=== PATIENT | female | born 1950 | race Caucasian/White ===

== ENCOUNTER → 2018-11-18 22:38 | Outpatient (CLI) | payer MEDICARE, BC ==
[2018-11-19 00:27] LABS: BASOPHILS 0.4 % (0-2); HEMATOCRIT 39.7 % (36.0-48.0); IMMATURE GRANULOCYTES 0.3 % (0-5); LYMPHOCYTES 25.5 % (15-50); MCH 30.5 pg (26.0-34.0); MCHC 32.7 g/dL (31.0-37.0); MCV 93.2 fL (80.0-100.0); MEAN PLATELET VOLUME 9.5 fL (7.4-10.4); NEUTROPHILS 63.8 % (40-80); PLATELET COUNT 454 10x3/uL (130-400); RBC 4.26 10x6/uL (4.00-5.40); RDW 13.6 % (11.5-14.5); WBC 7.9 10x3/uL (4.8-10.8)
[2018-11-19 00:59] LABS: ALBUMIN 3.8 g/dL (3.4-5.0); BILIRUBIN - TOTAL 0.23 mg/dL (0.2-1.3); CALCIUM 8.3 mg/dL (8.5-10.1); CARBON DIOXIDE 28.2 mmol/L (21.0-32.0); CREATININE - SERUM 1.2 mg/dL (0.6-1.3); POTASSIUM - SERUM 4.2 mmol/L (3.5-5.1); PROTEIN - SERUM 7.1 g/dL (6.4-8.2)
== END | disposition home or self-care (01) ==
LOC: D.LABREF 22:38
DX: N39.0 Urinary tract infection, site not specified (principal); R42 Dizziness and giddiness

== ENCOUNTER → 2020-03-02 16:48 | Outpatient (CLI) | payer MEDICARE, BC | END | disposition home or self-care (01) | LOC: D.RAD 16:48 | PROVIDERS: ATTEND Emergency Medicine | DX: M25.562 Pain in left knee (principal) ==